=== PATIENT | female | born 1965 | race Caucasian/White ===

== ENCOUNTER 2017-11-14 12:12 | Observation (INO) ==
--- NOTE | 2017-11-14 12:55 | Emergency Department Note ---
Disposition Clinical Impression: Pleural effusion, bilateral Disposition: Admitted As Inpatient Condition: Good General Adult HPI - General Chief complaint: ED Shortness of Breath/Dyspnea Stated complaint: sinus drng/cough/sob/pleural effusions Time Seen by Provider: 11/14/17 12:29 Source: patient Limitations: no limitations Nursing Notes Reviewed: Yes Vital Signs Reviewed: Yes - History of Present Illness Pain Scale: 2 - Related Data Home Medications Medication Instructions Recorded Confirmed Mv,Calcium,Min/Iron/Folic/Vitk 1 each PO DAILY 11/14/17 11/14/17 [Multi For Her Tablet] Omeprazole [PriLOSEC] 20 mg PO DAILY PRN 11/14/17 11/14/17 Allergies Allergy/AdvReac Type Severity Reaction Status Date / Time dicyclomine [From Bentyl] Allergy Nausea Verified 11/14/17 15:04 metronidazole [From Flagyl] Allergy Nausea Verified 11/14/17 15:04 morphine Allergy Vomiting Verified 11/14/17 15:04 naproxen Allergy Swelling Verified 11/14/17 15:04 of Lip/Tongue/Throat Penicillins [PCN] Allergy Palpitation Verified 11/14/17 15:04 s Past Medical History - Past Medical History Medical history: Reports: cancer, other Surgical history: Reports: , cholecystectomy, hysterectomy, other Psychiatric history: Reports: no psych history 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 - Social History Smoking Status: Former smoker Smokeless Tobacco Status: No Alcohol use: Reports: rarely Drug use: Reports: none Physical Exam - General Limitations: no limitations General appearance: alert Course Vital Signs Temperature 97.9 F 11/14/17 12:13 Pulse Rate 110 11/14/17 12:13 Respiratory Rate 22 11/14/17 12:13 Blood Pressure 131/95 11/14/17 12:13 O2 Sat by Pulse Oximetry 95 11/14/17 12:13 Temperature 98.7 F 11/14/17 16:28 Pulse Rate 114 11/14/17 16:28 Respiratory Rate 15 11/14/17 16:28 Blood Pressure 117/98 11/14/17 16:28 O2 Sat by Pulse Oximetry 95 11/14/17 16:28 Oxygen Delivery Oxygen Delivery Room Air Medical Decision Making - MDM Narrative Medical decision making narrative: 1330 hrs.: Patient's d-dimer is elevated, we will do a CTA of her chest. She says she is not allergic to contrast. Chest CTA 11/14/17 13:30 IMPRESSION: No evidence of pulmonary embolism. Large bilateral pleural effusions with moderate bilateral atelectasis. Pneumonia possible. No definite finding worrisome for metastatic disease. RECOMMENDATIONS: Bilateral ultrasound-guided paracenteses for diagnostic and therapeutic benefits. D/ / John Barahona MD / John Barahona MD Interpreting Provider: John Barahona MD 1455 hrs.: Were negative and bring her into the hospital. CT is back. Looks like effusion versus pneumonia. Patient is agreement with the admission. - Lab Data Result diagrams: 11/14/17 12:47 11/14/17 12:47 Lab Results 11/14/17 11/14/17 11/14/17 Range/Units 12:30 12:47 12:47 WBC 8.3 (4.3-11.1) K/mcL RBC 4.85 (3.82-4.97) M/mcL Hgb 15.2 (11.5-15.4) g/dL Hct 43.4 (35.3-44.9) % MCV 89.5 (83.0-100.0) fL MCH 31.3 (28.0-33.3) pg MCHC 35.0 (31.6-35.5) g/dL RDW 12.9 (11.5-14.5) % Plt Count 221 (140-400) K/mcL MPV 10.6 (9.4-12.4) fL Immature Gran % 0.2 (0-4) % Seg Neutrophils % 73.3 % Lymphocytes % 17.9 % Monocytes % 7.3 % Eosinophils % 0.6 % Basophils % 0.7 % Neutrophils # 6.1 (1.6-8.9) K/mcL Lymphocytes # 1.5 (0.6-4.6) K/mcL Monocytes # 0.6 (0.0-1.3) K/mcL Eosinophils # 0.1 (0.0-0.6) K/mcL Basophils # 0.1 (0.0-0.2) K/mcL PT 12.6 H (9.4-12.1) Seconds INR 1.1 D-Dimer 759 H (0-500) ng/mLFEU Sodium (136-145) mEq/L Potassium (3.5-5.1) mEq/L Chloride (98-107) mEq/L Carbon Dioxide (23-29) mEq/L BUN (6-20) mg/dL Creatinine (0.60-1.20) mg/dL Est GFR ( Amer) (> 60) Est GFR (Non-Af Amer) (> 60) BUN/Creatinine Ratio (6-26) Glucose (70-105) mg/dL Calculated Osmolality (280-300) Calcium (8.6-10.3) mg/dL Total Bilirubin (0.3-1.0) mg/dL AST (13-39) Units/L ALT (7-52) Units/L Alkaline Phosphatase (34-104) Units/L Troponin I (< 0.04) ng/mL B-Natriuretic Peptide (Less than 100) pg/mL Serum Total Protein (6.4-8.9) g/dL Albumin (3.5-5.7) g/dL Globulin (2.4-3.5) g/dL Albumin/Globulin Ratio (1.1-2.2) Urine Color Yellow (Yellow) Urine Clarity Clear (Clear) Urine pH 7.0 (5.0-8.0) pH Units Ur Specific [place] 1.016 (1.010-1.025) Urine Protein Negative (Neg-Trace) mg/dL Urine Glucose (UA) Normal (Normal) mg/dL Urine Ketones Negative (Negative) mg/dL Urine Blood Negative (Negative) Urine Nitrite Negative (Negative) Urine Bilirubin Negative (Negative) Urine Urobilinogen Normal (Normal) mg/dL Ur Leukocyte Esterase Negative (Negative) Ur Culture Indicated? NO (NO) 11/14/17 11/14/17 Range/Units 12:47 12:47 WBC (4.3-11.1) K/mcL RBC (3.82-4.97) M/mcL Hgb (11.5-15.4) g/dL Hct (35.3-44.9) % MCV (83.0-100.0) fL MCH (28.0-33.3) pg MCHC (31.6-35.5) g/dL RDW (11.5-14.5) % Plt Count (140-400) K/mcL MPV (9.4-12.4) fL Immature Gran % (0-4) % Seg Neutrophils % % Lymphocytes % % Monocytes % % Eosinophils % % Basophils % % Neutrophils # (1.6-8.9) K/mcL Lymphocytes # (0.6-4.6) K/mcL Monocytes # (0.0-1.3) K/mcL Eosinophils # (0.0-0.6) K/mcL Basophils # (0.0-0.2) K/mcL PT (9.4-12.1) Seconds INR D-Dimer (0-500) ng/mLFEU Sodium 137 (136-145) mEq/L Potassium 3.9 (3.5-5.1) mEq/L Chloride 102 (98-107) mEq/L Carbon Dioxide 25 (23-29) mEq/L BUN 8 (6-20) mg/dL Creatinine 0.61 (0.60-1.20) mg/dL Est GFR ( Amer) > 60 (> 60) Est GFR (Non-Af Amer) > 60 (> 60) BUN/Creatinine Ratio 13 (6-26) Glucose 104 (70-105) mg/dL Calculated Osmolality 283 (280-300) Calcium 10.6 H (8.6-10.3) mg/dL Total Bilirubin 0.5 (0.3-1.0) mg/dL AST 60 H (13-39) Units/L ALT 37 (7-52) Units/L Alkaline Phosphatase 60 (34-104) Units/L Troponin I < 0.03 (< 0.04) ng/mL B-Natriuretic Peptide 14 (Less than 100) pg/mL Serum Total Protein 6.7 (6.4-8.9) g/dL Albumin 3.8 (3.5-5.7) g/dL Globulin 2.9 (2.4-3.5) g/dL Albumin/Globulin Ratio 1.3 (1.1-2.2) Urine Color (Yellow) Urine Clarity (Clear) Urine pH (5.0-8.0) pH Units Ur Specific [place] (1.010-1.025) Urine Protein (Neg-Trace) mg/dL Urine Glucose (UA) (Normal) mg/dL Urine Ketones (Negative) mg/dL Urine Blood (Negative) Urine Nitrite (Negative) Urine Bilirubin (Negative) Urine Urobilinogen (Normal) mg/dL Ur Leukocyte Esterase (Negative) Ur Culture Indicated? (NO) Attestation Statement - Attestation Attestation: This documentation is done with the assistance of Dragon dictation. Despite efforts made to ensure accuracy, there may be inaccuracies in order dispatcher or spelling and typographical errors. Patient was seen and evaluated with Dr. Ulloa and myself, the patient comes in today with symptoms of congestion and cough. I agree with her evaluation and treatment plans supervise care the patient's stay. Started in last 24-48 hours. History of breast cancer in the past. She elected not to finish her chemotherapy or radiation. Did have a double mastectomy. Into the urgent care they knows that she had bilateral pleural effusions on chest x-ray. Radiology read it as possible CHF. No history of this in the past. Were going to start a workup on her here. Most likely she will need admission. She is in agreement with plan.
[2017-11-14] MEDS ORDERED: predniSONE 20 MG TABLET PO ONE (13:01)
[2017-11-14 13:09] LABS: Basophils # 0.1 K/mcL (0.0-0.2); Basophils % 0.7 %; Eosinophils # 0.1 K/mcL (0.0-0.6); Eosinophils % 0.6 %; Hematocrit 43.4 % (35.3-44.9); Hemoglobin 15.2 g/dL (11.5-15.4); Immature Granulocytes % 0.2 % (0-4); Lymphocytes # 1.5 K/mcL (0.6-4.6); Lymphocytes % 17.9 %; Mean Corpuscular Hemoglobin 31.3 pg (28.0-33.3); Mean Corpuscular Volume 89.5 fL (83.0-100.0); Mean Platelet Volume 10.6 fL (9.4-12.4); Monocytes # 0.6 K/mcL (0.0-1.3); Monocytes % 7.3 %; Neutrophils # 6.1 K/mcL (1.6-8.9); Platelet Count 221 K/mcL (140-400); Red Blood Count 4.85 M/mcL (3.82-4.97); Red Cell Distribution Width 12.9 % (11.5-14.5); Segmented Neutrophils % 73.3 %
[2017-11-14] MEDS ORDERED: Furosemide 40 MG/4 ML VIAL IVP ONE (13:16)
--- NOTE | 2017-11-14 13:16 | Emergency Department Note ---
Disposition Clinical Impression: Pleural effusion, bilateral Disposition: Admitted As Inpatient Condition: Good Time of Disposition: 15:14 General Adult HPI - General Chief complaint: ED Shortness of Breath/Dyspnea Stated complaint: PE Time Seen by Provider: 11/14/17 12:29 Source: patient Limitations: no limitations Nursing Notes Reviewed: Yes Vital Signs Reviewed: Yes - History of Present Illness HPI Narrative: Female patient presenting to the emergency department complaining of 3 week history of sinus drainage and congestion in her chest. Does have history of breast cancer. Denies any chest pain. Does report a nonproductive cough. Denies any fevers. Has tried [id number] decongestants with no relief. Pain Scale: 2 - Related Data Home Medications Medication Instructions Recorded Confirmed Mv,Calcium,Min/Iron/Folic/Vitk 1 each PO DAILY 11/14/17 11/14/17 [Multi For Her Tablet] Omeprazole [PriLOSEC] 20 mg PO DAILY PRN 11/14/17 11/14/17 Allergies Allergy/AdvReac Type Severity Reaction Status Date / Time dicyclomine [From Bentyl] Allergy Nausea Verified 11/14/17 15:04 metronidazole [From Flagyl] Allergy Nausea Verified 11/14/17 15:04 morphine Allergy Vomiting Verified 11/14/17 15:04 naproxen Allergy Swelling Verified 11/14/17 15:04 of Lip/Tongue/Throat Penicillins [PCN] Allergy Palpitation Verified 11/14/17 15:04 s All systems ED: reviewed and negative except as stated. Constitutional: Denies: fever, chills ENT ED: Reports: congestion Cardiovascular: Denies: chest pain Respiratory: Reports: cough, dyspnea. Denies: sputum production Gastrointestinal: Reports: abdominal pain (discomfort in epigastric region). Denies: nausea, vomiting, diarrhea, hematemesis, melena, hematochezia Musculoskeletal: Denies: back pain, neck pain Past Medical History - Past Medical History Attestation: Yes The following information was validated with the patient. 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 - Social History Smoking Status: Former smoker Smokeless Tobacco Status: No Alcohol use: Reports: rarely Drug use: Reports: none Physical Exam - General Limitations: no limitations General appearance: alert, in no apparent distress - Head Head exam: atraumatic, normocephalic, normal inspection - Eye Eye exam: Present: normal appearance, PERRL, EOMI - ENT ENT exam: normal exam, normal oropharynx, mucous membranes moist - Neck Neck exam: Present: normal inspection, full ROM, trachea midline - Chest Chest inspection: Present: normal inspection, symmetric chest wall rise - Respiratory Respiratory exam: Present: other (Decreased lower lobe sounds.). Absent: respiratory distress - Cardiovascular Cardiovascular exam: Present: normal rhythm, tachycardia, normal heart sounds - Abdominal Exam Abdominal exam: Present: soft, Non-Tender. Absent: distention, rigidity, organomegaly - Extremities Exam Extremities exam: Present: normal inspection, full ROM. Absent: tenderness, pedal edema - Back Exam Back exam: Present: normal inspection, full ROM. Absent: tenderness, CVA tenderness (R), CVA tenderness (L) - Neurological Exam Neurological exam: Present: alert, oriented X3 - Psychiatric Psychiatric exam: Present: normal affect, normal mood - Skin Skin exam: Present: warm, dry, erythema (2 scar line on right breast.), other ( orange in color. No scleral icteris. Consistent with excessive carrots in her diet. Multiple areas of scabbing to lower extremities. 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 She started juicing at that time and goes through a 15 pound bag of carrots every 2 days. She states that she started feeling very good and was doing well however 3 weeks ago she developed a cough. This was nonproductive. Also has some rhinorrhea. Was trying to Treat as outpatient with expectorants as well as decongestants. Denies any fevers or chills. States that she is generally cold and Normally uses a heating blanket. Patient states she has also had some changes to her right breast since the surgery. She states he has are consistent from her previous inflammatory breast cancer to this area. She denies any itching or pain to this area. There is just some erythema. The patient is well appearing well resting in bed. Her lung sounds are clear but diminished in the lower lobes. Heart tones are normal. No signs of swelling or edema to her extremities. She does have multiple excoriations or lower extremities. She states that she was recently in [place] and they have been itching very bad. Patient was being seen at urgent care today for her rhinorrhea and cough. They had a chest x-ray there that showed bilateral pleural effusions. She has no history of this before. No history of congestive heart failure. There is some congestion noted as well on her chest x-ray. We will get a basic lab workup on patient and provide her with prednisone and Benadryl for her legs. We will admit her to the hospital. We will also provide her with a dose of Lasix while here. - Reevaluation(s) Reevaluation #1: Patient's d-dimer was elevated. The CTA of her chest showed no signs of PE. That showed the pleural effusions. I am concerned for possible underlying malignancy versus CHF. She does have pulmonary edema on her chest x-ray. No pedal edema. We have started her on Lasix while here. She does not have a fever. We will admit to the hospital for further evaluation. Time: 15:01 - Consultations Consultation #1: Dr Cardozo accepted Pt in stable condition. Time: 15:01 Vital Signs Temperature 97.9 F 11/14/17 12:13 Pulse Rate 110 11/14/17 12:13 Respiratory Rate 22 11/14/17 12:13 Blood Pressure 131/95 11/14/17 12:13 O2 Sat by Pulse Oximetry 95 11/14/17 12:13 Temperature 97.9 F 11/14/17 12:13 Pulse Rate 99 11/14/17 13:41 Respiratory Rate 16 11/14/17 13:41 Blood Pressure 128/90 11/14/17 13:41 O2 Sat by Pulse Oximetry 93 11/14/17 13:41 Oxygen Delivery Oxygen Delivery Room Air Medical Decision Making - Medical Records Medical records reviewed: Yes I reviewed the patient's medical records. - Lab Data Lab results reviewed: Yes I reviewed the patient's lab results. Result diagrams: 11/14/17 12:47 11/14/17 12:47 Lab Results 11/14/17 11/14/17 11/14/17 Range/Units 12:30 12:47 12:47 WBC 8.3 (4.3-11.1) K/mcL RBC 4.85 (3.82-4.97) M/mcL Hgb 15.2 (11.5-15.4) g/dL Hct 43.4 (35.3-44.9) % MCV 89.5 (83.0-100.0) fL MCH 31.3 (28.0-33.3) pg MCHC 35.0 (31.6-35.5) g/dL RDW 12.9 (11.5-14.5) % Plt Count 221 (140-400) K/mcL MPV 10.6 (9.4-12.4) fL Immature Gran % 0.2 (0-4) % Seg Neutrophils % 73.3 % Lymphocytes % 17.9 % Monocytes % 7.3 % Eosinophils % 0.6 % Basophils % 0.7 % Neutrophils # 6.1 (1.6-8.9) K/mcL Lymphocytes # 1.5 (0.6-4.6) K/mcL Monocytes # 0.6 (0.0-1.3) K/mcL Eosinophils # 0.1 (0.0-0.6) K/mcL Basophils # 0.1 (0.0-0.2) K/mcL D-Dimer 759 H (0-500) ng/mLFEU Sodium (136-145) mEq/L Potassium (3.5-5.1) mEq/L Chloride (98-107) mEq/L Carbon Dioxide (23-29) mEq/L BUN (6-20) mg/dL Creatinine (0.60-1.20) mg/dL Est GFR ( Amer) (> 60) Est GFR (Non-Af Amer) (> 60) BUN/Creatinine Ratio (6-26) Glucose (70-105) mg/dL Calculated Osmolality (280-300) Calcium (8.6-10.3) mg/dL Total Bilirubin (0.3-1.0) mg/dL AST (13-39) Units/L ALT (7-52) Units/L Alkaline Phosphatase (34-104) Units/L Troponin I (< 0.04) ng/mL B-Natriuretic Peptide (Less than 100) pg/mL Serum Total Protein (6.4-8.9) g/dL Albumin (3.5-5.7) g/dL Globulin (2.4-3.5) g/dL Albumin/Globulin Ratio (1.1-2.2) Urine Color Yellow (Yellow) Urine Clarity Clear (Clear) Urine pH 7.0 (5.0-8.0) pH Units Ur Specific [place] 1.016 (1.010-1.025) Urine Protein Negative (Neg-Trace) mg/dL Urine Glucose (UA) Normal (Normal) mg/dL Urine Ketones Negative (Negative) mg/dL Urine Blood Negative (Negative) Urine Nitrite Negative (Negative) Urine Bilirubin Negative (Negative) Urine Urobilinogen Normal (Normal) mg/dL Ur Leukocyte Esterase Negative (Negative) Ur Culture Indicated? NO (NO) 11/14/17 11/14/17 Range/Units 12:47 12:47 WBC (4.3-11.1) K/mcL RBC (3.82-4.97) M/mcL Hgb (11.5-15.4) g/dL Hct (35.3-44.9) % MCV (83.0-100.0) fL MCH (28.0-33.3) pg MCHC (31.6-35.5) g/dL RDW (11.5-14.5) % Plt Count (140-400) K/mcL MPV (9.4-12.4) fL Immature Gran % (0-4) % Seg Neutrophils % % Lymphocytes % % Monocytes % % Eosinophils % % Basophils % % Neutrophils # (1.6-8.9) K/mcL Lymphocytes # (0.6-4.6) K/mcL Monocytes # (0.0-1.3) K/mcL Eosinophils # (0.0-0.6) K/mcL Basophils # (0.0-0.2) K/mcL D-Dimer (0-500) ng/mLFEU Sodium 137 (136-145) mEq/L Potassium 3.9 (3.5-5.1) mEq/L Chloride 102 (98-107) mEq/L Carbon Dioxide 25 (23-29) mEq/L BUN 8 (6-20) mg/dL Creatinine 0.61 (0.60-1.20) mg/dL Est GFR ( Amer) > 60 (> 60) Est GFR (Non-Af Amer) > 60 (> 60) BUN/Creatinine Ratio 13 (6-26) Glucose 104 (70-105) mg/dL Calculated Osmolality 283 (280-300) Calcium 10.6 H (8.6-10.3) mg/dL Total Bilirubin 0.5 (0.3-1.0) mg/dL AST 60 H (13-39) Units/L ALT 37 (7-52) Units/L Alkaline Phosphatase 60 (34-104) Units/L Troponin I < 0.03 (< 0.04) ng/mL B-Natriuretic Peptide 14 (Less than 100) pg/mL Serum Total Protein 6.7 (6.4-8.9) g/dL Albumin 3.8 (3.5-5.7) g/dL Globulin 2.9 (2.4-3.5) g/dL Albumin/Globulin Ratio 1.3 (1.1-2.2) Urine Color (Yellow) Urine Clarity (Clear) Urine pH (5.0-8.0) pH Units Ur Specific [place] (1.010-1.025) Urine Protein (Neg-Trace) mg/dL Urine Glucose (UA) (Normal) mg/dL Urine Ketones (Negative) mg/dL Urine Blood (Negative) Urine Nitrite (Negative) Urine Bilirubin (Negative) Urine Urobilinogen (Normal) mg/dL Ur Leukocyte Esterase (Negative) Ur Culture Indicated? (NO) - Radiology Data Radiology results reviewed: Yes I reviewed the patient's radiology results. Chest CTA 11/14/17 13:30 IMPRESSION: No evidence of pulmonary embolism. Large bilateral pleural effusions with moderate bilateral atelectasis. Pneumonia possible. No definite finding worrisome for metastatic disease. RECOMMENDATIONS: Bilateral ultrasound-guided paracenteses for diagnostic and therapeutic benefits. D/ / John Barahona MD / John Barahona MD Interpreting Provider: John Barahona MD - EKG Data EKG #1 EKG attestation: Yes I reviewed and interpreted this EKG. EKG results narrative: Sinus tachycardia at a rate of 102. [place] interval is 131. QRS duration is 89. QT is 331. QTC is 390. No signs of acute ischemia. No previous EKG to compare to. Does have some flattened T waves throughout.
[2017-11-14] MEDS ORDERED: Isovue-370 500 ML INFUS..BTL IV ONE (13:30)
[2017-11-14 13:36] LABS: Troponin I < 0.03 ng/mL (< 0.04)
[2017-11-14 13:39] LABS: Alanine Aminotransferase 37 Units/L (7-52); Albumin 3.8 g/dL (3.5-5.7); Albumin/Globulin Ratio 1.3 (1.1-2.2); Alkaline Phosphatase 60 Units/L (34-104); Aspartate Amino Transferase 60 Units/L (13-39); BUN/Creatinine Ratio 13 (6-26); Bilirubin,Total 0.5 mg/dL (0.3-1.0); Blood Urea Nitrogen 8 mg/dL (6-20); Calcium 10.6 mg/dL (8.6-10.3); Carbon Dioxide 25 mEq/L (23-29); Chloride 102 mEq/L (98-107); Globulin 2.9 g/dL (2.4-3.5); Glucose 104 mg/dL (70-105); Osmolality,Calculated 283 (280-300); Potassium 3.9 mEq/L (3.5-5.1); Sodium 137 mEq/L (136-145); Total Protein 6.7 g/dL (6.4-8.9); eGFR For African Americans > 60 (> 60); eGFR For Non-African Americans > 60 (> 60)
[2017-11-14 13:40] LABS: Bilirubin,Urine Negative (Negative); Blood,Urine Negative (Negative); Clarity,Urine Clear (Clear); Color,Urine Yellow (Yellow); Glucose,Urine (UA) Normal (Normal); Ketones,Urine Negative (Negative); Leukocyte Esterase,Urine Negative (Negative); Nitrite,Urine Negative (Negative); Protein,Urine Negative (Neg-Trace); Specific Gravity,Urine 1.016 (1.010-1.025); Urobilinogen,Urine Normal (Normal)
[2017-11-14] MEDS ORDERED: Naloxone 0.4 MG/ML INJ IVP PRN (15:26)
[2017-11-14 15:55] LABS: INR 1.1; Prothrombin Time 12.6 Seconds (9.4-12.1)
--- NOTE | 2017-11-14 16:32 | Internal Med History&Physical ---
Date of Encounter: 11/14/17 Time of Encounter: 16:00 Internal Medicine - H&P: HPI Chief complaint: Shortness of breath Admitted From: Emergency Dept Plans for Post Hospital Care: Home History of present illness: Ms. 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 She had previously received chemotherapy with Taxotere, carboplatin, Herceptin and pertuzumab. She then underwent bilateral mastectomy. She was told that there was a remnant cancerous tissue and she was recommended repeat surgery, chemotherapy and radiation. However she opted not to go ahead with this given that her cancer was not curable. She has since been on a juice only diet including mostly carrot juice. She has lost about 40 pounds with his diet. She drinks 8 glasses of carrot juice every day. She denies any chest pain or palpitations. No pedal edema. No cough. No chest pain. No palpitations. She has noted that the size of inflammatory skin over her right breast has increased in size. She denies any fever or chills. No cough. Past Med Surg Social Fam HX - Past Medical History Attestation: Yes The following information was validated with the patient. Source: patient Medical history: cancer, other Additional medical history: Breast cancer (double masectomy) Psychiatric history: no psych history - Past Surgical History Surgical History: , cholecystectomy, hysterectomy, other Additional surgical history: rt mammory gland removed,bilateral tubal ligation, bladder repair - Social History Smoking Status: Former smoker Smokeless Tobacco Status: No Alcohol use: rarely Drug use: none - Additional Family History Additional family history: Reviewed and found to be noncontributory at this time Internal Medicine - H&P: Meds Mv,Calcium,Min/Iron/Folic/Vitk [Multi For Her Tablet] 1 each PO DAILY 11/14/17 [ History] Omeprazole [PriLOSEC] 20 mg PO DAILY PRN 11/14/17 [History] 3 Allergy/AdvReac Type Severity Reaction Status Date / Time dicyclomine [From Bentyl] Allergy Nausea Verified 11/14/17 15:04 metronidazole [From Flagyl] Allergy Nausea Verified 11/14/17 15:04 morphine Allergy Vomiting Verified 11/14/17 15:04 naproxen Allergy Swelling Verified 11/14/17 15:04 of Lip/Tongue/Throat Penicillins [PCN] Allergy Palpitation Verified 11/14/17 15:04 s All Systems PM: A 10-system review of systems was performed and is negative for pertinent findings except as documented above in the HPI. - Constitutional Constitutional: no chills, no fever(s), no night sweats - EENT Eyes: no change in vision, no discharge, no pain, no photophobia Ears: no ear discharge, no ear pain, no tinnitus Nose, mouth and throat: no dysphagia, no nasal discharge, no neck pain, no sore throat - Cardiovascular Cardiovascular ROS IM: no chest pain, no diaphoresis, no dyspnea, no lightheadedness, no palpitations, no syncope - Respiratory Respiratory: dyspnea, dyspnea on exertion, no cough, no wheezing, no excessive phlegm production - Gastrointestinal Gastrointestinal: no abdominal pain, no diarrhea, no hematemesis, no hematochezia, no melena, no nausea, no vomiting - Genitourinary Genitourinary: no change in urinary stream, no dysuria, no flank pain, no hematuria - Musculoskeletal Musculoskeletal ROS IM: no numbness, no tingling - Integumentary Integumentary IM: erythema, no rash, no unusual bruising - Constitutional Vitals: Temp Pulse Resp BP Pulse Ox 98.7 F 99 18 100/80 93 11/14/17 16:03 11/14/17 13:41 11/14/17 16:03 11/14/17 16:03 11/14/17 13:41 General appearance: Present: cooperative, mild distress, A&O X 3, pleasant, answers questions appropriately - Neck Neck exam general surgery: Present: supple, trachea midline. Absent: lymphadenopathy - Respiratory Respiratory exam: Present: decreased breath sounds. Absent: accessory muscle use, rales, rhonchi, wheezes Additional comments: Bilateral basal crackles - Cardiovascular Cardiovascular exam: Present: RRR, +S1, +S2. Absent: diastolic murmur, gallop, rubs, systolic murmur - GI/Abdominal GI/Abdominal exam: Present: normal bowel sounds, soft, no peritoneal signs. Absent: distended, tenderness - Extremities Exam Extremities exam: Present: warm, radial pulses palpable and symmetrical. Absent : calf tenderness, cyanotic, pedal edema - Neurological Exam Neurological exam: Present: oriented X3, no focal deficits. Absent: facial droop, speech deficit - Skin Additional comments: Erythematous skin over the right breast extending across midline. Internal Med - H&P Results - Labs CBC & Chem 7: 11/14/17 12:47 11/14/17 12:47 - Impressions Impressions Chest CTA 11/14/17 13:30 IMPRESSION: No evidence of pulmonary embolism. Large bilateral pleural effusions with moderate bilateral atelectasis. Pneumonia possible. No definite finding worrisome for metastatic disease. RECOMMENDATIONS: Bilateral ultrasound-guided paracenteses for diagnostic and therapeutic benefits. D/ / John Barahona MD / John Barahona MD Interpreting Provider: John Barahona MD - Assessment and plan (1) Pulmonary edema Current Visit: Yes Status: Acute Assessment and plan: Patient presenting with shortness of breath with minimal exertion. Chest x-ray shows pulmonary edema. Concerning for underlying congestive heart failure given patient's history of Herceptin use. We will get 2-D echocardiogram. Treat with intravenous Lasix. Monitor input and output. Follow renal function closely. Qualifiers: Chronicity: acute Qualified Code(s): J81.0 - Acute pulmonary edema (2) Pleural effusion, bilateral Current Visit: Yes Status: Acute Assessment and plan: Patient has bilateral pleural effusion. Could be related to heart failure and pulmonary edema or due to fluid overload from excessive consumption of salt- containing juices. We will consult IR for thoracentesis for diagnostic/ therapeutic purposes. (3) Inflammatory carcinoma of right breast Current Visit: Yes Status: Chronic Assessment and plan: History of inflammatory breast cancer. CT of the chest does not show any lung lesions. However we will obtain lasted thoracentesis to look for any pleuritic spread. - Time Spent With Patient Total time spent is greater than 50% in coordination of care (as documented) at patient's floor/unit and/or counseling patient:
[2017-11-14] MEDS: Furosemide 40 MG/4 ML VIAL IVP SCH (19:56)
[2017-11-15 04:26] LABS: Basophils % 0.3 %; Hematocrit 41.9 % (35.3-44.9); Hemoglobin 14.7 g/dL (11.5-15.4); Immature Granulocytes % 0.1 % (0-4); Lymphocytes # 1.3 K/mcL (0.6-4.6); Mean Corpuscular HGB Conc 35.1 g/dL (31.6-35.5); Mean Corpuscular Hemoglobin 31.2 pg (28.0-33.3); Mean Platelet Volume 10.7 fL (9.4-12.4); Monocytes # 0.6 K/mcL (0.0-1.3); Monocytes % 8.2 %; Neutrophils # 5.7 K/mcL (1.6-8.9); Platelet Count 245 K/mcL (140-400); Red Blood Count 4.71 M/mcL (3.82-4.97); Red Cell Distribution Width 12.6 % (11.5-14.5); Segmented Neutrophils % 74.4 %
[2017-11-15 04:50] LABS: BUN/Creatinine Ratio 15 (6-26); Blood Urea Nitrogen 9 mg/dL (6-20); Calcium 10.7 mg/dL (8.6-10.3); Carbon Dioxide 27 mEq/L (23-29); Chloride 99 mEq/L (98-107); Glucose 110 mg/dL (70-105); Lactate Dehydrogenase 252 Units/L (140-271); Osmolality,Calculated 283 (280-300); Potassium 3.5 mEq/L (3.5-5.1); Sodium 137 mEq/L (136-145); eGFR For African Americans > 60 (> 60); eGFR For Non-African Americans > 60 (> 60)
[2017-11-15] MEDS: Furosemide 40 MG/4 ML VIAL IVP SCH ×2 (07:40→16:05)
[2017-11-15] MEDS: Multivit/Ca/Min/Fe/FA 1 TAB TABLET PO SCH (07:40)
--- NOTE | 2017-11-15 14:49 | Internal Med Progress Note ---
<Constantine Muñiz - Last Filed: 11/15/17 15:18> Date of Encounter: 11/15/17 Time of Encounter: 10:20 - Assessment and plan (1) Inflammatory carcinoma of right breast Current Visit: Yes Status: Chronic Assessment and plan: History of ER/CA/Her2+ inflammatory breast cancer. CT of the chest does not show any lung lesions. s/p taxotere, carboplatin, herceptin, perjeta: 6 cycles mid 2016 bilateral mastectomy with axillary lymph node dissection Feb 2017 shows active cancer in dermal lymphatics, inferior skin margin left mastectomy negative for malignancy declined revision surgery for posterior inferior skin margin decided against herceptin cycle, and antiestrogen treatment Plan: Thoracentesis with interventional radiology planned for Thursday (2) Pulmonary edema Current Visit: Yes Status: Acute Assessment and plan: Patient presenting with shortness of breath with minimal exertion. Chest x-ray shows pulmonary edema. Concerning for underlying congestive heart failure given patient's history of Herceptin use. Plan: Echocardiogram. Treat with intravenous Lasix. Monitor input and output. Follow renal function closely. Qualifiers: Chronicity: acute Qualified Code(s): J81.0 - Acute pulmonary edema (3) Pleural effusion, bilateral Current Visit: Yes Status: Acute Assessment and plan: Pt saturating well on room air BNP Echo ordered to workup heart failure IR consult planned for Thursday with thoracentesis for further effusion diagnostics - Time Spent With Patient Total time spent is greater than 50% in coordination of care (as documented) at patient's floor/unit and/or counseling patient: - Subjective Interval history: Patient seen and evaluated at bedside accompanied by . She denies fever , chest discomfort, she states her breathing is somewhat improved from yesterday. - Constitutional Vitals: Temp Pulse Resp BP Pulse Ox 98.3 F 94 15 107/80 95 11/15/17 11:34 11/15/17 11:34 11/15/17 11:34 11/15/17 11:34 11/15/17 11:34 General appearance: Present: cooperative, mild distress, A&O X 3, pleasant, answers questions appropriately - Head Head exam: Present: atraumatic, normocephalic - Eye Eye exam: Present: PERRL, conjuntiva pink, sclera anicteric Pupils: Present: PERRL - Neck Neck exam general surgery: Present: supple, trachea midline. Absent: lymphadenopathy - Respiratory Respiratory exam: Present: decreased breath sounds. Absent: accessory muscle use, rales, rhonchi, wheezes Additional comments: Bilateral basilar - Cardiovascular Cardiovascular exam: Present: RRR, +S1, +S2. Absent: diastolic murmur, gallop, rubs, systolic murmur - GI/Abdominal GI/Abdominal exam: Present: normal bowel sounds, soft, no peritoneal signs. Absent: distended, tenderness - Extremities Exam Extremities exam: Present: warm, radial pulses palpable and symmetrical. Absent : calf tenderness, cyanotic, pedal edema - Neurological Exam Neurological exam: Present: CN II-XII intact, oriented X3, no focal deficits. Absent: pronater drift, facial droop, speech deficit - Skin Skin exam: Present: dry, intact Additional comments: warm, dry, mild orange tinge, bilateral mastectomy Internal Medicine: Result - Labs CBC & Chem 7: 11/15/17 04:07 11/15/17 04:07 Labs: Short CBC 11/15/17 Range/Units 04:07 WBC 7.7 (4.3-11.1) K/mcL Hgb 14.7 (11.5-15.4) g/dL Hct 41.9 (35.3-44.9) % Plt Count 245 (140-400) K/mcL Neutrophils # 5.7 (1.6-8.9) K/mcL BMP 11/15/17 04:07 Sodium 137 Potassium 3.5 Chloride 99 Carbon Dioxide 27 BUN 9 Creatinine 0.60 Glucose 110 H Calcium 10.7 H - ABG Interpretation ABG results: PT/INR, D-dimer PT 12.6 Seconds (9.4-12.1) H 11/14/17 12:47 D-Dimer 759 ng/mLFEU (0-500) H 11/14/17 12:47 - Impressions Impressions Echocardiogram 11/15/17 11:28 Impressions: LVEF 60-65%. Normal LV chamber size, wall thickness and function. Mild left ventricular diastolic dysfunction. Normal right ventricular structure and function. No evidence of pulmonary hypertension. No significant valvular dysfunction. Left Ventricular Wall Motion: Rest Echo Findings All wall segments showed normal motion. Findings: Study Quality * Technically adequate exam. ECG Findings * Normal sinus rhythm. Left Ventricle * LVEF 60-65%. * Normal LV chamber size, wall thickness and function. * Mild left ventricular diastolic dysfunction. Right Ventricle * Normal right ventricular structure and function. Left Atrium * Normal left atrial size. Right Atrium * Normal right atrial size. Aortic Valve * Aortic valve not well visualized. * No aortic regurgitation. * No aortic stenosis. Mitral Valve * Normal mitral valve structure and function. * No mitral regurgitation. * No mitral stenosis. Tricuspid Valve * Normal tricuspid valve structure and function. * Trace tricuspid regurgitation. * No evidence of pulmonary hypertension. Pulmonic Valve * Normal pulmonic valve structure and function. * No pulmonic regurgitation. Aorta * Normally sized aortic root. Pericardium * The pericardium appears normal. IVC * Normal IVC dimensions and inspiratory collapse. Pulmonary Artery * Normal visualized portions of the main pulmonary artery. Consult Discharge Plan - Plan Referrals: NONE,PCP [Primary Care Provider] - <Patrice Dowling - Last Filed: 11/15/17 17:19> Date of Encounter: 11/15/17 - Assessment and plan (1) Inflammatory carcinoma of right breast Current Visit: Yes Status: Chronic (2) Pleural effusion, bilateral Current Visit: Yes Status: Acute (3) Pulmonary edema Current Visit: Yes Status: Acute Qualifiers: Chronicity: acute Qualified Code(s): J81.0 - Acute pulmonary edema - Time Spent With Patient Total time spent is greater than 50% in coordination of care (as documented) at patient's floor/unit and/or counseling patient: - Constitutional Vitals: Temp Pulse Resp BP Pulse Ox 98.0 F 103 15 116/93 93 11/15/17 16:00 11/15/17 16:00 11/15/17 16:00 11/15/17 16:00 11/15/17 16:00 Internal Medicine: Result - Labs CBC & Chem 7: 11/15/17 04:07 11/15/17 04:07 Labs: Short CBC 11/15/17 Range/Units 04:07 WBC 7.7 (4.3-11.1) K/mcL Hgb 14.7 (11.5-15.4) g/dL Hct 41.9 (35.3-44.9) % Plt Count 245 (140-400) K/mcL Neutrophils # 5.7 (1.6-8.9) K/mcL BMP 11/15/17 04:07 Sodium 137 Potassium 3.5 Chloride 99 Carbon Dioxide 27 BUN 9 Creatinine 0.60 Glucose 110 H Calcium 10.7 H - ABG Interpretation ABG results: PT/INR, D-dimer PT 12.6 Seconds (9.4-12.1) H 11/14/17 12:47 D-Dimer 759 ng/mLFEU (0-500) H 11/14/17 12:47 - Impressions Impressions Echocardiogram 11/15/17 11:28 Impressions: LVEF 60-65%. Normal LV chamber size, wall thickness and function. Mild left ventricular diastolic dysfunction. Normal right ventricular structure and function. No evidence of pulmonary hypertension. No significant valvular dysfunction. Left Ventricular Wall Motion: Rest Echo Findings All wall segments showed normal motion. Findings: Study Quality * Technically adequate exam. ECG Findings * Normal sinus rhythm. Left Ventricle * LVEF 60-65%. * Normal LV chamber size, wall thickness and function. * Mild left ventricular diastolic dysfunction. Right Ventricle * Normal right ventricular structure and function. Left Atrium * Normal left atrial size. Right Atrium * Normal right atrial size. Aortic Valve * Aortic valve not well visualized. * No aortic regurgitation. * No aortic stenosis. Mitral Valve * Normal mitral valve structure and function. * No mitral regurgitation. * No mitral stenosis. Tricuspid Valve * Normal tricuspid valve structure and function. * Trace tricuspid regurgitation. * No evidence of pulmonary hypertension. Pulmonic Valve * Normal pulmonic valve structure and function. * No pulmonic regurgitation. Aorta * Normally sized aortic root. Pericardium * The pericardium appears normal. IVC * Normal IVC dimensions and inspiratory collapse. Pulmonary Artery * Normal visualized portions of the main pulmonary artery. - Attending Attestation I performed an independent interview and exam of this patient. I agree with the findings, assessment, and plan of Dr. Muñiz, internal medicine resident. We discussed the case in detail. This is a 52-year-old female with a history of breast cancer, status post chemotherapy, with evidence of residual tumor. Shortness of breath and is noted to have bilateral pleural effusions, fairly large. No fevers or elevated white blood cell count. I do not suspect infection. She is nontoxic in appearance. Her BNP is normal as I do not believe she is having acute decompensated heart failure. Her echocardiogram is fairly normal. Her albumin is normal, she is thin but I doubt this is due to nutrition issues. My main differential for this patient includes side effects of chemotherapy versus malignancy or both. She is to undergo both a diagnostic and therapeutic thoracentesis tomorrow. In the interim should she developed fevers, we will treat appropriately but again I do not believe this is infected. Patient also has hypercalcemia, which could be due to malignancy as well. Normally I would treat with IV fluids, however due to large pleural effusions I would not want to worsen this potentially. She is asymptomatic. Gen: NAD, AAOx3 Skin warm and dry. Chest wall with erythema but does not appear cellulitic. Chronic findings. Neck: No JVD Lungs- dimin bs bilat and bibasilar crackles Ht RRR, no murmur or rub Abd - Soft +BS, NT Ext - no edema I discussed the case in detail with the patient and her .
[2017-11-16] MEDS: Multivit/Ca/Min/Fe/FA 1 TAB TABLET PO SCH (09:41)
[2017-11-16] MEDS: Furosemide 40 MG/4 ML VIAL IVP SCH ×2 (09:41→18:47)
--- NOTE | 2017-11-16 09:58 | Internal Med Progress Note ---
Date of Encounter: 11/16/17 Time of Encounter: 08:00 - Assessment and plan (1) Pleural effusion, bilateral Current Visit: Yes Status: Acute Assessment and plan: Pt saturating well on room air BNP Echo ordered to workup heart failure IR consult planned for Thursday with thoracentesis for further effusion diagnostics 11/16: Differential diagnosis to include a chylous effusion, metastatic cancer effusion, versus heart failure a pleuritis due to chemotherapy agents, although this should be a late presentation for this. I do not suspect infection. Diagnostic and therapeutic Thoracentesis planned today. Discussed the case with the patient and her at the bedside (2) Inflammatory carcinoma of right breast Current Visit: Yes Status: Chronic Assessment and plan: History of ER/[place]/Her2+ inflammatory breast cancer. CT of the chest does not show any lung lesions. s/p taxotere, carboplatin, herceptin, perjeta: 6 cycles 2016 bilateral mastectomy with axillary lymph node dissection Feb 2017 shows active cancer in dermal lymphatics, inferior skin margin left mastectomy negative for malignancy declined revision surgery for posterior inferior skin margin decided against herceptin cycle, and antiestrogen treatment Plan: Thoracentesis with interventional radiology planned for Thursday (3) Pulmonary edema Current Visit: Yes Status: Acute Assessment and plan: Patient presenting with shortness of breath with minimal exertion. Chest x-ray shows pulmonary edema. Concerning for underlying congestive heart failure given patient's history of Herceptin use. Plan: Echocardiogram. Treat with intravenous Lasix. Monitor input and output. Follow renal function closely. 11/16: See discussion above for differential dx. Qualifiers: Chronicity: acute Qualified Code(s): J81.0 - Acute pulmonary edema - Time Spent With Patient Total time spent is greater than 50% in coordination of care (as documented) at patient's floor/unit and/or counseling patient: 25 - 35 minutes - Subjective Interval history: CC: Shortness of breath Ms. 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 She had previously received chemotherapy with Taxotere, carboplatin, Herceptin and pertuzumab. She then underwent bilateral mastectomy. She was told that there was a remnant cancerous tissue and she was recommended repeat surgery, chemotherapy and radiation. However she opted not to go ahead with this given that her cancer was not curable. She has since been on a juice only diet including mostly carrot juice. She has lost about 40 pounds with his diet. She drinks 8 glasses of carrot juice every day. She denies any chest pain or palpitations. No pedal edema. No cough. No chest pain. No palpitations. She has noted that the size of inflammatory skin over her right breast has increased in size. She denies any fever or chills. No cough. 11/16: Patient states her breathing is improved. She did diurese 2.7 L with Lasix. She denies any chest pain. No nausea or vomiting. No fevers or chills. No new complaints. - Constitutional Vitals: Temp Pulse Resp BP Pulse Ox 98.4 F 85 15 100/71 93 11/16/17 06:13 11/16/17 06:13 11/16/17 06:13 11/16/17 06:13 11/16/17 06:13 General appearance: Present: cachectic, cooperative, A&O X 3, pleasant, answers questions appropriately - Head Head exam: Present: atraumatic, normocephalic - Eye Eye exam: Present: PERRL, conjuntiva pink, sclera anicteric Pupils: Present: PERRL - Neck Neck exam general surgery: Present: supple, trachea midline. Absent: lymphadenopathy - Respiratory Respiratory exam: Present: decreased breath sounds. Absent: accessory muscle use, rales, rhonchi, wheezes - Cardiovascular Cardiovascular exam: Present: RRR, +S1, +S2. Absent: diastolic murmur, gallop, rubs, systolic murmur - GI/Abdominal GI/Abdominal exam: Present: normal bowel sounds, soft, no peritoneal signs. Absent: distended, tenderness - Extremities Exam Extremities exam: Present: warm, radial pulses palpable and symmetrical. Absent : calf tenderness, cyanotic, pedal edema - Neurological Exam Neurological exam: Present: CN II-XII intact, oriented X3, no focal deficits. Absent: pronater drift, facial droop, speech deficit - Skin Skin exam: Present: dry, intact Additional comments: Anterior chest wall erythema which is chronic. Does not appear to be acutely infected. Internal Medicine: Result - Labs CBC & Chem 7: 11/15/17 04:07 11/15/17 04:07 - ABG Interpretation ABG results: PT/INR, D-dimer PT 12.6 Seconds (9.4-12.1) H 11/14/17 12:47 D-Dimer 759 ng/mLFEU (0-500) H 11/14/17 12:47 - Impressions Impressions Echocardiogram 11/15/17 11:28 Impressions: LVEF 60-65%. Normal LV chamber size, wall thickness and function. Mild left ventricular diastolic dysfunction. Normal right ventricular structure and function. No evidence of pulmonary hypertension. No significant valvular dysfunction. Left Ventricular Wall Motion: Rest Echo Findings All wall segments showed normal motion. Findings: Study Quality * Technically adequate exam. ECG Findings * Normal sinus rhythm. Left Ventricle * LVEF 60-65%. * Normal LV chamber size, wall thickness and function. * Mild left ventricular diastolic dysfunction. Right Ventricle * Normal right ventricular structure and function. Left Atrium * Normal left atrial size. Right Atrium * Normal right atrial size. Aortic Valve * Aortic valve not well visualized. * No aortic regurgitation. * No aortic stenosis. Mitral Valve * Normal mitral valve structure and function. * No mitral regurgitation. * No mitral stenosis. Tricuspid Valve * Normal tricuspid valve structure and function. * Trace tricuspid regurgitation. * No evidence of pulmonary hypertension. Pulmonic Valve * Normal pulmonic valve structure and function. * No pulmonic regurgitation. Aorta * Normally sized aortic root. Pericardium * The pericardium appears normal. IVC * Normal IVC dimensions and inspiratory collapse. Pulmonary Artery * Normal visualized portions of the main pulmonary artery. - VTE Documentation of Mechanical Device: Venous foot pump, device Consult Discharge Plan - Plan Referrals: NONE,PCP [Primary Care Provider] -
[2017-11-16 17:23] LABS: Total Protein,Pleural Fluid 4.4 g/dL (No Ref Range)
--- NOTE | 2017-11-16 18:03 | Electrocardiograph Report ---
[address] [place], [place] [address] Test Date: 2017-11-14 Pat Name: Maria T Muñiz Department: 104 Room: 2NE18 Gender: F Quality Lab Technician: CARMEN : 1965 Requested By: Sunny Camejo Order Number: [id number] Reading MD: Sagar Perrin Measurements Intervals [place] Rate: 102 P: 49 [place]: 131 QRS: 40 QRSD: 89 T: -7 QT: 331 QTc: 390 Interpretive Statements SINUS TACHYCARDIA Electronically Signed On 11-16-2017 18:01:23 EDT by Sagar Perrin
[2017-11-16] MEDS: Cetirizine HCl 5 MG/5 ML UDC PO SCH (18:47)
[2017-11-17 07:05] LABS: Basophils % 0.6 %; Eosinophils % 0.6 %; Hematocrit 44.1 % (35.3-44.9); Hemoglobin 15.8 g/dL (11.5-15.4); Immature Granulocytes % 0.1 % (0-4); Lymphocytes # 1.7 K/mcL (0.6-4.6); Lymphocytes % 24.3 %; Mean Corpuscular HGB Conc 35.8 g/dL (31.6-35.5); Mean Corpuscular Hemoglobin 32.2 pg (28.0-33.3); Mean Corpuscular Volume 89.8 fL (83.0-100.0); Mean Platelet Volume 10.9 fL (9.4-12.4); Monocytes # 0.8 K/mcL (0.0-1.3); Monocytes % 10.9 %; Neutrophils # 4.5 K/mcL (1.6-8.9); Platelet Count 232 K/mcL (140-400); Red Blood Count 4.91 M/mcL (3.82-4.97); Red Cell Distribution Width 12.7 % (11.5-14.5); Segmented Neutrophils % 63.5 %
[2017-11-17 07:24] LABS: Albumin 3.7 g/dL (3.5-5.7); BUN/Creatinine Ratio 21 (6-26); Blood Urea Nitrogen 13 mg/dL (6-20); Calcium 10.8 mg/dL (8.6-10.3); Carbon Dioxide 28 mEq/L (23-29); Chloride 93 mEq/L (98-107); Glucose 99 mg/dL (70-105); Lactate Dehydrogenase 248 Units/L (140-271); Osmolality,Calculated 280 (280-300); Potassium 2.9 mEq/L (3.5-5.1); Sodium 135 mEq/L (136-145); eGFR For African Americans > 60 (> 60); eGFR For Non-African Americans > 60 (> 60)
[2017-11-17 07:25] LABS: Total Protein 6.8 g/dL (6.4-8.9)
--- NOTE | 2017-11-17 08:01 | Internal Med Progress Note ---
Date of Encounter: 11/17/17 - Time Spent With Patient Total time spent is greater than 50% in coordination of care (as documented) at patient's floor/unit and/or counseling patient: - Subjective Interval history: HPI: Mrs. Muñiz is a 52 Yo W f with several complaints today including a feeling of "fullness" in her abd. This is no different than on admission. She also complains of shortness of breath that is no better since admission. She has new onset nausea with no vomiting. She was able to eat half of her breakfast this a.m. She complains of increased weakness. No presyncope upon standing. Reports mild confusion. She describes the confusion as a "fogginess" in her memory. She thinks this may be related to lack of sleep from being in the hospital. She complains of increased urinary urgency with little urine output that began today. She denies any burning with urination. Reports a rash eminating from R mastectomy scar that has not been seen by a doctor. Reports poison [place] rash on b/l lower Ext. - Constitutional Vitals: Temp Pulse Resp BP Pulse Ox 98.8 F 85 17 102/72 93 11/17/17 06:53 11/17/17 06:53 11/17/17 06:53 11/17/17 06:53 11/17/17 06:53 General appearance: Present: cachectic, cooperative, A&O X 3, pleasant, answers questions appropriately Exam: PE general: middle aged f no acute distress. appears fatigued. heart: tachycardic with no murmur gallop or rub. radial and dorsalis pedis pulses 2+. No edema of extremities. lungs: expiratory rhoncii in lower lobes anteriorly. shortness of breath evident when talking. abd: nondistended without jaundice. normoactive bowel sounds no bruits. tender to palpation in the LUQ and RLQ. no rebound tenderness. soft with no mass or hepatosplenomegaly. integumentary: erythematous, well demarcated rash emitting from mastectomy scar on the R. central pallor surrounding the scar with 6 cm by 15 cm surrounding blanching erythema with a woody feel. Small, mildly erythematous circular lesions b/l lower Ext. G/U: no suprapubic tenderness Internal Medicine: Result - Labs CBC & Chem 7: 11/17/17 06:28 11/17/17 06:28 Labs: Short CBC 11/17/17 Range/Units 06:28 WBC 7.0 (4.3-11.1) K/mcL Hgb 15.8 H (11.5-15.4) g/dL Hct 44.1 (35.3-44.9) % Plt Count 232 (140-400) K/mcL Neutrophils # 4.5 (1.6-8.9) K/mcL BMP 11/17/17 06:28 Sodium 135 L Potassium 2.9 L Chloride 93 L Carbon Dioxide 28 BUN 13 Creatinine 0.62 Glucose 99 Calcium 10.8 H Liver Function 11/17/17 Range/Units 06:28 Albumin 3.7 (3.5-5.7) g/dL - ABG Interpretation ABG results: PT/INR, D-dimer PT 12.6 Seconds (9.4-12.1) H 11/14/17 12:47 D-Dimer 759 ng/mLFEU (0-500) H 11/14/17 12:47 - Impressions Impressions Thoracentesis Ultrasound 11/16/17 07:00 IMPRESSION: Successful ultrasound guided thoracentesis. D/ / Donald Hammer MD / Donald Hammer MD Interpreting Provider: Donald Hammer MD Chest X-Ray 11/16/17 14:38 IMPRESSION: 1. Status post right thoracentesis with no immediate complications. Otherwise, stable chest x-ray. D/ / Osorio Ricci MD / Osorio Ricci MD Interpreting Provider: Osorio Ricci MD - VTE Documentation of Mechanical Device: Intermittent pneumatic compression device Consult Discharge Plan - Plan Referrals: Elaine Rodriguez, LICENSE DISTRIBUTOR [Advanced Practice Nurse] - 11/26/17 1:30 pm
--- NOTE | 2017-11-17 08:07 | Internal Med Progress Note ---
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 (4) Pulmonary edema Current Visit: Yes Status: Acute Qualifiers: Chronicity: acute Qualified Code(s): J81.0 - Acute pulmonary edema - Time Spent With Patient Total time spent is greater than 50% in coordination of care (as documented) at patient's floor/unit and/or counseling patient: - Constitutional Vitals: Temp Pulse Resp BP Pulse Ox 97.8 F 89 16 101/77 94 11/17/17 10:19 11/17/17 16:40 11/17/17 16:40 11/17/17 16:40 11/17/17 16:40 Internal Medicine: Result - Labs CBC & Chem 7: 11/17/17 06:28 11/17/17 06:28 Labs: Short CBC 11/17/17 Range/Units 06:28 WBC 7.0 (4.3-11.1) K/mcL Hgb 15.8 H (11.5-15.4) g/dL Hct 44.1 (35.3-44.9) % Plt Count 232 (140-400) K/mcL Neutrophils # 4.5 (1.6-8.9) K/mcL BMP 11/17/17 06:28 Sodium 135 L Potassium 2.9 L Chloride 93 L Carbon Dioxide 28 BUN 13 Creatinine 0.62 Glucose 99 Calcium 10.8 H Liver Function 11/17/17 Range/Units 06:28 Albumin 3.7 (3.5-5.7) g/dL Urine 11/17/17 Range/Units 16:39 Urine Color Yellow (Yellow) Urine Clarity Clear (Clear) Urine pH 8.0 (5.0-8.0) pH Units Ur Specific [place] 1.009 L (1.010-1.025) Urine Protein Negative (Neg-Trace) mg/dL Urine Glucose (UA) Normal (Normal) mg/dL - ABG Interpretation ABG results: PT/INR, D-dimer PT 12.6 Seconds (9.4-12.1) H 11/14/17 12:47 D-Dimer 759 ng/mLFEU (0-500) H 11/14/17 12:47 - Impressions Impressions Thoracentesis Ultrasound 11/17/17 10:42 IMPRESSION: Successful ultrasound guided thoracentesis. D/ / Tony Johnson MD / Tony Johnson MD Interpreting Provider: Tony Johnson MD Chest X-Ray 11/17/17 14:29 IMPRESSION: Status post thoracentesis with trace residual bilateral pleural effusions and mild bibasilar atelectasis. No evidence of pneumothorax. D/ / 11/17/2017 15:26:42 Abebe Ramirez MD / earnold Interpreting Provider: Abebe Ramirez MD Consult Discharge Plan - Plan Referrals: Elaine Rodriguez, VOCATIONAL NURSING INSTRUCTOR [Advanced Practice Nurse] - 11/26/17 1:30 pm - Attending Attestation I examined this patient and my medical decision-making was reviewed with the Resident Physician on 11/17/17. I agree with the documented findings, disposition and treatment plan as described except to the extent set forth below. Ms Muñiz is currently admitted for dyspnea related to bilateral pleural effusions. She is s/p thora yesterday and is to have another today. She remains moderate to high risk due to potential for worsening clinical status. Ms Muñiz is doing OK but she is very fatigued. No fever or chills. She has been tachycardic some. No CP. No abs pain. Fluid studies pending. Exam alert Pleasant Mucus membranes dry Heart reg and slightly tachy (105) Lungs diminished Abd soft I/P 1. Pleural effusions 2. Fatigue - perhaps is somewhat dehydrated. Fluids given Further diagnoses and plan as above Probable d/c tomorrow. <Isma Bui - Last Filed: 11/17/17 19:04> Date of Encounter: 11/17/17 Time of Encounter: 11:00 - Assessment and plan (1) Hypokalemia Current Visit: Yes Status: Acute Assessment and plan: patient had a K of 2.9. This could be attributed to her being on IV lasix . 50 mEq PO potassium Citrate administered. 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 She underwent multiple rounds of chemotherapy, she declined revision surgery for posterior inferior skin margin - Time Spent With Patient Total time spent is greater than 50% in coordination of care (as documented) at patient's floor/unit and/or counseling patient: - Subjective Interval history: No acute events overnight. Patient is status post right thoracentesis. Patient tolerated the procedure well. Patient had some questions about the nature of the serosanguineous discharge. Concerns were appropriately addressed . I told the family that we are awaiting the results of the culture and nothing can be said definitely at the moment. - Constitutional Vitals: Temp Pulse Resp BP Pulse Ox 98.8 F 85 17 102/72 93 11/17/17 06:53 11/17/17 06:53 11/17/17 06:53 11/17/17 06:53 11/17/17 06:53 General appearance: Present: cachectic, cooperative, A&O X 3, pleasant, answers questions appropriately Exam: she is A&O *3 - Head Additional comments: normoncephalic and atraumatic - Neck Additional comments: no lymphadenopathy appreciated - Respiratory Additional comments: no rales, ronchi appreciated - Cardiovascular Additional comments: RRR, no gallops, murmurs or rubs - GI/Abdominal Additional comments: no hyper or hypoactive bowel sounds appreciated, no evidence of hepato or splenomegaly - Psychiatric Additional comments: good mentation Internal Medicine: Result - Labs CBC & Chem 7: 11/17/17 06:28 11/17/17 06:28 Labs: Short CBC 11/17/17 Range/Units 06:28 WBC 7.0 (4.3-11.1) K/mcL Hgb 15.8 H (11.5-15.4) g/dL Hct 44.1 (35.3-44.9) % Plt Count 232 (140-400) K/mcL Neutrophils # 4.5 (1.6-8.9) K/mcL BMP 11/17/17 06:28 Sodium 135 L Potassium 2.9 L Chloride 93 L Carbon Dioxide 28 BUN 13 Creatinine 0.62 Glucose 99 Calcium 10.8 H Liver Function 11/17/17 Range/Units 06:28 Albumin 3.7 (3.5-5.7) g/dL - ABG Interpretation ABG results: PT/INR, D-dimer PT 12.6 Seconds (9.4-12.1) H 11/14/17 12:47 D-Dimer 759 ng/mLFEU (0-500) H 11/14/17 12:47 - Impressions Impressions Thoracentesis Ultrasound 11/16/17 07:00 IMPRESSION: Successful ultrasound guided thoracentesis. D/ / Donald Hammer MD / Donald Hammer MD Interpreting Provider: Donald aHmmer MD Chest X-Ray 11/16/17 14:38 IMPRESSION: 1. Status post right thoracentesis with no immediate complications. Otherwise, stable chest x-ray. D/ / Osorio Ricci MD / Osorio Ricci MD Interpreting Provider: Osorio Ricci MD - VTE Documentation of Mechanical Device: Intermittent pneumatic compression device
[2017-11-17] MEDS: Cetirizine HCl 5 MG/5 ML UDC PO SCH (09:20)
[2017-11-17] MEDS: Furosemide 40 MG/4 ML VIAL IVP SCH (09:20)
[2017-11-17] MEDS: Multivit/Ca/Min/Fe/FA 1 TAB TABLET PO SCH (09:20)
[2017-11-17] MEDS ORDERED: Ondansetron ODT 4 MG TAB.RAPDIS SL PRN (09:59)
[2017-11-17] MEDS: Potassium Citrate 10 MEQ TABLET.ER PO SCH ×2 (11:24→21:34)
[2017-11-17 12:35] LABS: Magnesium 1.7 mg/dL (1.6-2.6)
[2017-11-17] MEDS ORDERED: Ringers Solution, Lactated 500 ML IVC ONE ×2 (14:28→14:45)
--- NOTE | 2017-11-17 14:29 | IR Procedure Note ---
Date of procedure: 11/17/17 Consent Obtained: Written consent Timeout: Correct patient and procedure verified, Correct site verified, Time out performed, Skin prep completed Local anesthetic: Lidocaine 1% Indications: Bilateral pleural effusions, right drained 11/16/17 Procedure Performed: Left thoracentesis Was there an assistant restaurant general manager present: No Site/Technique: left chest. Thoracentesis performed. Results/Findings: Still draining light serosanguinous fluid. Estimated blood loss (cc): 1 Complications: None; Tolerated procedure well Post Procedure Treatment Plan: Monitoring in VIR Specimen: Being determined by IR RN regarding need for sample to be sent currently
[2017-11-17 16:51] LABS: Bilirubin,Urine Negative (Negative); Blood,Urine Negative (Negative); Clarity,Urine Clear (Clear); Color,Urine Yellow (Yellow); Glucose,Urine (UA) Normal (Normal); Ketones,Urine Negative (Negative); Leukocyte Esterase,Urine Negative (Negative); Nitrite,Urine Negative (Negative); Protein,Urine Negative (Neg-Trace); Specific Gravity,Urine 1.009 (1.010-1.025); Urobilinogen,Urine Normal (Normal)
[2017-11-17 17:05] LABS: LDH,Pleural Fluid 790 Units/L (No Ref Range); Triglycerides, Pleural Fluid 33 mg/dL (No Ref Range)
[2017-11-17 18:54] LABS: RBC,Pleural Fluid 0.016 M/mcL
[2017-11-17 18:55] LABS: Appearance of Pleural Fl Hazy (Clear)
[2017-11-18 04:52] LABS: BUN/Creatinine Ratio 19 (6-26); Blood Urea Nitrogen 11 mg/dL (6-20); Calcium 10.2 mg/dL (8.6-10.3); Carbon Dioxide 33 mEq/L (23-29); Chloride 93 mEq/L (98-107); Glucose 101 mg/dL (70-105); Osmolality,Calculated 278 (280-300); Potassium 3.2 mEq/L (3.5-5.1); Sodium 134 mEq/L (136-145); eGFR For African Americans > 60 (> 60); eGFR For Non-African Americans > 60 (> 60)
[2017-11-18 06:53] VITALS: BP 110/77
[2017-11-18 07:38] LABS: Magnesium 1.9 mg/dL (1.6-2.6)
[2017-11-18] MEDS: Multivit/Ca/Min/Fe/FA 1 TAB TABLET PO SCH (08:06)
[2017-11-18] MEDS: Cetirizine HCl 5 MG/5 ML UDC PO SCH (08:06)
--- NOTE | 2017-11-18 10:16 | Discharge Summary ---
<Isma Bui - Last Filed: 11/18/17 16:18> Orders not resulted at time of discharge: Pending orders 11/14/17 15:37 Culture,Body Fluid [RM] Routine 11/14/17 15:38 IR thoracentesis ultrasound [IR] Routine 11/16/17 14:39 Cytology [PTH] Stat 11/17/17 15:41 Cytology [PTH] Urgent 11/17/17 16:53 Cell Count w Diff, Pleural Fld [BF] Routine LDH,Pleural Fluid [BF] Routine Total Protein,Pleural Fluid [BF] Routine Date of Encounter: 11/18/17 Time of Encounter: 10:37 - Discharge Diagnosis (1) Pulmonary edema Priority: Secondary Status: Resolved Qualifiers: Chronicity: acute Qualified Code(s): J81.0 - Acute pulmonary edema (2) Pleural effusion, bilateral Priority: Primary Status: Resolved Assessment and Plan: patient is s/p ultrasound guided thoracentesis and her respiratory function is at baseline the day of her discharge (3) Inflammatory carcinoma of right breast Priority: Secondary Status: Chronic Assessment and Plan: Patient has undergone multiple rounds of chemotherapy in the past and has been advised to follow-up with her oncologist within the next 1-2 weeks. (4) Hypokalemia Priority: Secondary Status: Resolved Assessment and Plan: Patient underwent hypokalemia secondary to IV lasix administration with her most recent K being 3.2. Given 50 mEq of KCL (11/17) and 40mEg (-11/18) . Patient has been discharged with 5 tablet of PO KCL qd Hospital course: Ms. Muñiz is a 52 year old female with a Hx of multiple myeloma, and inflammatory breast cancer s/p bilateral mastectomy with multiple rounds of chemotherapy who presented to the ER with complains of shortness of breath for the past 2-3 weeks. During the admission, she denied any chest flores, palpations, pedal edema, cough, chest pain , numbness or tingling in her extremities. Chest CTA demonstrated pulmonary edema and the patient was treated with IV lasix throughout her hospital stay. During the course of hospital stay patient underwent hypokalemia secondary to the IV Lasix and was given PO KCl. CXR also revealed bilateral pleural effusion with bilateral atelectesis. She underwent successful Ultrasound guided right thoracentesis on November 16, 2017 which drained 0.9 L of serosangunous fluid. This was followed by the left side thoracentesis on November 17, 2017. Patient tolerated the procedure well. CXR s/p thoacentesis confirmed decreased in size of the bilateral pleural effusion. Patient vitals remained stable during the rest of her hospital stay and her respiratory function returned to the baseline. She was advised to follow up with her oncologist and sales merchandising specialist as an out patient in 1-2 weeks - Time Spent with Patient Total time spent providing and/or coordinating discharge services: - Discharge Medications Prescriptions: Ondansetron ODT [Zofran ODT] 4 mg SL Q4HR PRN #30 tab.rapdis PRN Reason: Nausea And Vomiting Cetirizine HCl [Zyrtec] 10 mg PO DAILY #30 tablet Potassium Chloride 20 meq PO DAILY #5 tab.er.prt Home Medications: Mv,Calcium,Min/Iron/Folic/Vitk [Multi For Her Tablet] 1 each PO DAILY 11/14/17 [ History] Omeprazole [PriLOSEC] 20 mg PO DAILY PRN 11/14/17 [History] Cetirizine HCl [Zyrtec] 10 mg PO DAILY #30 tablet 11/18/17 [Rx] Ondansetron ODT [Zofran ODT] 4 mg SL Q4HR PRN #30 tab.rapdis 11/18/17 [Rx] Potassium Chloride 20 meq PO DAILY #5 tab.er.prt 11/18/17 [Rx] Allergies/Adverse Reactions: 3 Allergy/AdvReac Type Severity Reaction Status Date / Time dicyclomine [From Bentyl] Allergy Nausea Verified 11/14/17 15:04 metronidazole [From Flagyl] Allergy Nausea Verified 11/14/17 15:04 morphine Allergy Vomiting Verified 11/14/17 15:04 naproxen Allergy Swelling Verified 11/14/17 15:04 of Lip/Tongue/Throat Penicillins [PCN] Allergy Palpitation Verified 11/14/17 15:04 s Date of admission: 11/14/17 15:09 Primary care physician: PCP NONE Consults: 11/14/17 16:46 Consult to Pastoral Services [CONS] Routine Comment: - Constitutional Vitals: Temp Pulse Resp BP Pulse Ox 98.4 F 99 15 110/77 99 11/18/17 06:50 11/18/17 06:50 11/18/17 06:50 11/18/17 06:50 11/18/17 06:50 General appearance: Present: cachectic, cooperative, A&O X 3, pleasant, answers questions appropriately Exam: A&O 3. No acute distress. - Head Additional comments: Normocephalic, atraumatic. - ENT Additional comments: Trachea midline, no lymphadenopathy appreciated. - Respiratory Additional comments: Clear to auscultation bilaterally. No wheezing, rales or rhonchi. - Cardiovascular Additional comments: Regular rate and rhythm. No gallops, murmurs, or rubs. - Neurological Exam Additional comments: Full range of motion. No sensory or motor deficits appreciated. - Psychiatric Additional comments: Good mentation. - Patient Status Disposition: Home, Self-Care Condition: Good Functional capacity at discharge: independent ambulation Overall status at discharge: patient is progressing back to baseline - Discharge Instructions Instructions: Potassium Chloride (By mouth), Ondansetron (By mouth), Cetirizine (By mouth), Pulmonary Edema (DC), Hypokalemia (DC), Pleural Effusion (DC) Follow Up With: Elaine Rodriguez, CHEMICAL LABORATORY TESTER [Advanced Practice Nurse] - Isma Bui [Resident] - (pt will have to call clinic to shedule a appt.) Additional Instructions: f/u with pulmonology in 1- 2 weeks f/u with hematology/ oncology is 1- 2 weeks f/u with Dr. Isma Bui in the [facility] - Diet and Activity Activity: increase activity as tolerated Diet: advance to your usual diet - VTE Documentation of Mechanical Device: Intermittent pneumatic compression device <Néstor Celis - Last Filed: 11/18/17 16:27> - NOTES TO OUTPATIENT PROVIDER Notes to Outpatient Provider: Pt admitted for dyspnea related to bilateral pleural effusions. Had bilateral thoracenteses. Pathology pending. Orders not resulted at time of discharge: Pending orders 11/14/17 15:37 Culture,Body Fluid [RM] Routine 11/14/17 15:38 IR thoracentesis ultrasound [IR] Routine 11/16/17 14:39 Cytology [PTH] Stat 11/17/17 15:41 Cytology [PTH] Urgent 11/17/17 16:53 Cell Count w Diff, Pleural Fld [BF] Routine LDH,Pleural Fluid [BF] Routine Total Protein,Pleural Fluid [BF] Routine Date of Encounter: 11/18/17 - Discharge Diagnosis (1) Pleural effusion, bilateral Status: Resolved (2) Inflammatory carcinoma of right breast Status: Chronic (3) Pulmonary edema Status: Resolved Qualifiers: Chronicity: acute Qualified Code(s): J81.0 - Acute pulmonary edema (4) Hypokalemia Status: Resolved Hospital course: Ms. Muñiz is a 52 year old female - Time Spent with Patient Total time spent providing and/or coordinating discharge services: 28min Date of admission: 11/14/17 15:09 Primary care physician: PCP NONE Consults: 11/14/17 16:46 Consult to Pastoral Services [CONS] Routine Comment: Discharging clinician: Néstor Celis Anticipated date of discharge: 11/18/17 - Constitutional Vitals: Temp Pulse Resp BP Pulse Ox 98.4 F 99 15 110/77 99 11/18/17 06:50 11/18/17 06:50 11/18/17 06:50 11/18/17 06:50 11/18/17 06:50
== END 2017-11-18 12:12 | disposition home or self-care (01) ==
LOC: EMEROO 12:12 → 2NENU 12:12 → SUATTDRO 15:09 → 2NENU 16:17
PROVIDERS: ADMIT Internal Medicine; ATTEND Internal Medicine

== ENCOUNTER 2021-09-02 19:17 | Inpatient (IN) ==
[2021-09-02] MEDS ORDERED: Isovue-370 500 ML BOTTLE IVP ONE (20:33)
[2021-09-02 20:41] LABS: Basophils % 0.7 %; Hemoglobin 10.5 g/dL (11.5-15.4); Immature Granulocytes % 1.8 % (0-4); Lymphocytes # 0.4 K/mcL (0.6-4.6); Lymphocytes % 6.3 %; Mean Corpuscular HGB Conc 31.8 g/dL (31.6-35.5); Mean Corpuscular Volume 91.2 fL (83.0-100.0); Mean Platelet Volume 9.3 fL (9.4-12.4); Monocytes # 0.9 K/mcL (0.0-1.3); Monocytes % 15.3 %; Neutrophils # 4.6 K/mcL (1.6-8.9); Nucleated Red Blood Cells 0.8 /100 WBC (0); Platelet Count 383 K/mcL (140-400); Red Blood Count 3.62 M/mcL (3.82-4.97); Red Cell Distribution Width 18.1 % (11.5-14.5); Segmented Neutrophils % 75.9 %; White Blood Count 6.1 K/mcL (4.3-11.1)
[2021-09-02 21:02] LABS: Alanine Aminotransferase 7 Units/L (7-52); Albumin 2.6 g/dL (3.5-5.7); Albumin/Globulin Ratio 0.7 (1.1-2.2); Alkaline Phosphatase 119 Units/L (34-104); Aspartate Amino Transferase 73 Units/L (13-39); BUN/Creatinine Ratio 13 (6-26); Bilirubin,Direct 0.1 mg/dL (0.0-0.2); Bilirubin,Indirect 0.2 mg/dL (0.0-1.0); Bilirubin,Total 0.3 mg/dL (0.3-1.0); Blood Urea Nitrogen 13 mg/dL (6-20); Calcium 9.8 mg/dL (8.6-10.3); Carbon Dioxide 35 mEq/L (23-29); Chloride 87 mEq/L (98-107); Globulin 3.6 g/dL (2.4-3.5); Glucose 98 mg/dL (70-105); Lipase 5 Units/L (11-82); Osmolality,Calculated 276 (280-300); Potassium 3.7 mEq/L (3.5-5.1); Sodium 133 mEq/L (136-145); Total Protein 6.2 g/dL (6.4-8.9); eGFR For African Americans > 60 (> 60); eGFR For Non-African Americans 58 (> 60)
[2021-09-02 21:10] LABS: Troponin I < 0.03 ng/mL (< 0.04)
[2021-09-02 22:01] LABS: Bilirubin,Urine Negative (Negative); Blood,Urine Large (Negative); Calcium Oxalate Crystals,Urine Present per hpf; Clarity,Urine Turbid (Clear); Color,Urine Yellow (Yellow); Glucose,Urine (UA) Normal (Normal); Hyaline Casts,Urine Few per lpf (None Seen); Ketones,Urine Trace mg/dL (Negative); Leukocyte Esterase,Urine Small (Negative); Mucus,Urine Few per lpf (None-Few); Nitrite,Urine Negative (Negative); Protein,Urine >=300 mg/dL (Neg-Trace); RBC,Urine TNTC per hpf (0-3); Specific Gravity,Urine > 1.030 (1.010-1.025); WBC,Urine 50-100 per hpf (0-3)
[2021-09-02] MEDS ORDERED: cefTRIAXone 2,000 MG in 0.9 % Sodium Chloride 20 ML IVP ONE (22:07)
[2021-09-02] MEDS ORDERED: levoFLOXacin 750 MG/150 ML 750 MG/150 ML BAG IVPB ONE (22:21)
[2021-09-02] MEDS ORDERED: Naloxone 0.4 MG/ML INJ IVP PRN (23:04)
[2021-09-03] MEDS ORDERED: *HR* HYDROcodone/Acet 5/325 mg TABLET PO PRN (00:39)
[2021-09-03] MEDS ORDERED: 0.9 % Sodium Chloride 1,000 ML IV ONE (00:45)
[2021-09-03] MEDS: *HR* HYDROcodone/Acet 5/325 mg TABLET PO PRN ×3 (01:24→19:55)
[2021-09-03] MEDS: *HR* Heparin 5,000 UNIT/ML VIAL SQ SCH ×3 (05:41→19:55)
[2021-09-03] MEDS ORDERED: Dextrose 4 GM Chewable Tablets PO PRN ×2 (08:34)
[2021-09-03] MEDS ORDERED: *HR* Dextrose 50 % in Water (Syg) 50 ML SYRINGE IVP PRN (08:34)
[2021-09-03] MEDS ORDERED: D5% in Water 1,000 ML IVC PRN (08:34)
[2021-09-03] MEDS ORDERED: Ertapenem 1,000 MG in 0.9 % Sodium Chloride Mini Bag 100 ML IVPB SCH (09:00)
[2021-09-03] MEDS ORDERED: *HR* Alteplase (Cathflo) 2 MG VIAL IVP ONE (09:55)
[2021-09-03 15:36] LABS: Appearance of Peritoneal Fl CLOUDY (Clear)
[2021-09-03 15:42] LABS: RBC,Peritoneal Fluid < 2000 RBC/mcL
[2021-09-03 16:12] LABS: Total Protein,Peritoneal Fluid 2.5 g/dL
[2021-09-03] MEDS: Albumin 25% 12.5gm/50mL 12.5 GM/50 ML IV.SOLN IVPB SCH (16:12)
[2021-09-03 16:32] LABS: Basophils,Peritoneal Fluid 0 %; Eosinophils,Peritoneal Fluid 0 %
[2021-09-03] MEDS ORDERED: *HR* HYDROcodone/Acet 5/325 mg TABLET PO ONE (21:45)
[2021-09-04] MEDS: Albumin 25% 12.5gm/50mL 12.5 GM/50 ML IV.SOLN IVPB SCH ×3 (00:16→20:30)
[2021-09-04 05:44] LABS: Basophils % 0.5 %; Eosinophils % 0.2 %; Hematocrit 27.2 % (35.3-44.9); Immature Granulocytes % 2.1 % (0-4); Lymphocytes # 0.4 K/mcL (0.6-4.6); Lymphocytes % 6.9 %; Mean Corpuscular HGB Conc 30.9 g/dL (31.6-35.5); Mean Corpuscular Hemoglobin 28.5 pg (28.0-33.3); Mean Corpuscular Volume 92.2 fL (83.0-100.0); Mean Platelet Volume 9.1 fL (9.4-12.4); Monocytes # 0.7 K/mcL (0.0-1.3); Monocytes % 12.7 %; Neutrophils # 4.5 K/mcL (1.6-8.9); Platelet Count 263 K/mcL (140-400); Red Blood Count 2.95 M/mcL (3.82-4.97); Red Cell Distribution Width 17.9 % (11.5-14.5); Segmented Neutrophils % 77.6 %; White Blood Count 5.8 K/mcL (4.3-11.1)
[2021-09-04 05:45] LABS: Hemoglobin 8.4 g/dL (11.5-15.4)
[2021-09-04 06:09] LABS: Alanine Aminotransferase 4 Units/L (7-52); Albumin 2.4 g/dL (3.5-5.7); Albumin/Globulin Ratio 0.9 (1.1-2.2); Alkaline Phosphatase 94 Units/L (34-104); Aspartate Amino Transferase 58 Units/L (13-39); BUN/Creatinine Ratio 11 (6-26); Bilirubin,Total 0.3 mg/dL (0.3-1.0); Blood Urea Nitrogen 10 mg/dL (6-20); Calcium 9.2 mg/dL (8.6-10.3); Carbon Dioxide 38 mEq/L (23-29); Chloride 92 mEq/L (98-107); Globulin 2.7 g/dL (2.4-3.5); Glucose 90 mg/dL (70-105); Osmolality,Calculated 281 (280-300); Potassium 3.6 mEq/L (3.5-5.1); Sodium 136 mEq/L (136-145); Total Protein 5.1 g/dL (6.4-8.9); eGFR For African Americans > 60 (> 60); eGFR For Non-African Americans > 60 (> 60)
[2021-09-04] MEDS: *HR* Heparin 5,000 UNIT/ML VIAL SQ SCH ×3 (06:22→20:18)
[2021-09-04] MEDS: *HR* HYDROcodone/Acet 5/325 mg TABLET PO PRN ×2 (10:30→20:16)
[2021-09-04] MEDS ORDERED: Perflutren Lipid Microsphere 1.3 ML in 0.9 % Sodium Chloride 8.7 ML IVP PRN (16:46)
[2021-09-04 20:06] LABS: Appearance of Pleural Fl Hazy (Clear)
[2021-09-04 20:24] LABS: Total Protein,Pleural Fluid 2.3 g/dL
[2021-09-04 20:48] LABS: RBC,Pleural Fluid 11000 RBC/mcL
[2021-09-04 20:52] LABS: Basophils,Pleural Fluid 0 %; Eosinophils,Pleural Fluid 0 %; Monocytes,Pleural Fluid 0 %
[2021-09-05] MEDS: Albumin 25% 12.5gm/50mL 12.5 GM/50 ML IV.SOLN IVPB SCH ×4 (00:20→23:55)
[2021-09-05] MEDS: *HR* Heparin 5,000 UNIT/ML VIAL SQ SCH ×3 (05:41→20:31)
[2021-09-05 06:06] LABS: Hematocrit 27.6 % (35.3-44.9); Hemoglobin 8.5 g/dL (11.5-15.4); Mean Corpuscular HGB Conc 30.8 g/dL (31.6-35.5); Mean Corpuscular Hemoglobin 28.6 pg (28.0-33.3); Mean Corpuscular Volume 92.9 fL (83.0-100.0); Mean Platelet Volume 9.4 fL (9.4-12.4); Platelet Count 292 K/mcL (140-400); Red Blood Count 2.97 M/mcL (3.82-4.97); Red Cell Distribution Width 17.9 % (11.5-14.5)
[2021-09-05 06:35] LABS: BUN/Creatinine Ratio 12 (6-26); Blood Urea Nitrogen 10 mg/dL (6-20); Calcium 9.2 mg/dL (8.6-10.3); Carbon Dioxide 37 mEq/L (23-29); Chloride 94 mEq/L (98-107); Glucose 91 mg/dL (70-105); Osmolality,Calculated 281 (280-300); Potassium 3.6 mEq/L (3.5-5.1); Sodium 136 mEq/L (136-145); eGFR For African Americans > 60 (> 60); eGFR For Non-African Americans > 60 (> 60)
[2021-09-05] MEDS: *HR* HYDROcodone/Acet 5/325 mg TABLET PO PRN ×2 (09:07→15:40)
[2021-09-05] MEDS ORDERED: Lidocaine -MPF 1% 2 ML VIAL INFILT STA (12:59)
[2021-09-05 13:13] LABS: Lactate Dehydrogenase 434 Units/L (140-271)
[2021-09-05] MEDS ORDERED: Lidocaine -MPF 1% 5 ML AMPUL INFILT STA (13:24)
[2021-09-05 18:07] LABS: RBC,Pleural Fluid 2000 RBC/mcL
[2021-09-05 18:23] LABS: Appearance of Pleural Fl Clear (Clear)
[2021-09-05 19:16] LABS: Glucose,Pleural Fluid 95 mg/dL (No Ref Range); LDH,Pleural Fluid 686 Units/L (No Ref Range)
[2021-09-05 19:56] LABS: Fluid Source for Albumin PERIT/ASCITES
[2021-09-05 20:26] LABS: Basophils,Pleural Fluid 0 %; Eosinophils,Pleural Fluid 0 %
[2021-09-05] MEDS ORDERED: FluocinoNIDE 0.05% CRM 15 GM TUBE TP SCH (21:00)
[2021-09-05] MEDS ORDERED: Nystatin POWDER 30 GM BOTTLE TP SCH (21:00)
[2021-09-06 00:36] LABS: Fluid Source for Cholesterol PLEURAL FLUID
[2021-09-06 04:05] VITALS: BP 106/71; PULSE 96; TEMP 98.3; O2SAT 99
[2021-09-06] MEDS: *HR* Heparin 5,000 UNIT/ML VIAL SQ SCH (04:49)
[2021-09-06 05:48] LABS: Hematocrit 28.4 % (35.3-44.9); Hemoglobin 8.6 g/dL (11.5-15.4); Mean Corpuscular HGB Conc 30.3 g/dL (31.6-35.5); Mean Corpuscular Hemoglobin 28.1 pg (28.0-33.3); Mean Corpuscular Volume 92.8 fL (83.0-100.0); Mean Platelet Volume 9.8 fL (9.4-12.4); Platelet Count 301 K/mcL (140-400); Red Blood Count 3.06 M/mcL (3.82-4.97); Red Cell Distribution Width 17.8 % (11.5-14.5); White Blood Count 8.4 K/mcL (4.3-11.1)
[2021-09-06 05:58] LABS: BUN/Creatinine Ratio 13 (6-26); Blood Urea Nitrogen 10 mg/dL (6-20); Calcium 9.4 mg/dL (8.6-10.3); Carbon Dioxide 36 mEq/L (23-29); Chloride 93 mEq/L (98-107); Glucose 86 mg/dL (70-105); Osmolality,Calculated 278 (280-300); Potassium 3.8 mEq/L (3.5-5.1); Sodium 135 mEq/L (136-145); eGFR For African Americans > 60 (> 60); eGFR For Non-African Americans > 60 (> 60)
[2021-09-06] MEDS: *HR* HYDROcodone/Acet 5/325 mg TABLET PO PRN (06:44)
[2021-09-06 11:33] LABS: Cholesterol,Body Fluid 108 mg/dL
[2021-09-06 21:40] LABS: Fluid Source for Cholesterol PLEURAL FLUID; Fluid Source for Triglycerides PLEURAL FLUID
[2021-09-07 11:15] LABS: Cholesterol,Body Fluid 51 mg/dL; Triglycerides,Body Fluid 33 mg/dL
== END 2021-09-06 13:04 | disposition home or self-care (01) | DRG 871 ==
LOC: SUATTDRO → EMEROOARM 19:17 → 3NENU 19:17 → SUATTDRO 23:01 → 3NENU 09-03 00:26
PROVIDERS: ADMIT Internal Medicine; ATTEND Internal Medicine